=== PATIENT | male | born 1965 | race Caucasian/White ===

== ENCOUNTER 2020-08-14 10:27 | Emergency (ER) | payer SELFPAY ==
[~2020-08-14] VITALS: Ht 162.6 cm; Wt 73.9 kg
[2020-08-14 10:38] VITALS: BP 120/76
--- NOTE | 2020-08-14 10:40 | NUR ---
PT TAKEN TO BED 5.
--- NOTE | 2020-08-14 10:44 | NUR ---
55/M presents to ED requesting a tetanus vaccine. Pt states he attacked by a dog on Wednesday and was bit several times to left flank. Patient has scattered bruisng and healing puncture sites and abrasions. No surrounding erythema noted. No drainage. Wounds appear clean. Pt states he went to the clinic this morning and was sent here to receive a Tetanus vaccine. Pt complains of mild pain to injury site. Denies medical hx.
[2020-08-14 12:16] VITALS: BP 120/76
--- NOTE | 2020-08-14 12:17 | NUR ---
Patient discharged with v/s stable. Written and verbal after care instructions given and explained. Patient verbalized understanding. Ambulatory with steady gait. All questions addressed prior to discharge. Advised to follow up with PMD.
== END 2020-08-14 12:17 | disposition home or self-care (01) ==
LOC: MED 10:27
DX: S31.050A Open bite of lower back and pelvis without penetration into retroperitoneum, initial encounter (principal); W54.0XXA Bitten by dog, initial encounter; Y93.89 Activity, other specified; Y92.89 Other specified places as the place of occurrence of the external cause; Y99.8 Other external cause status
CPT/HCPCS: 90471; 90715; 99283